=== PATIENT | female | born 1965 | race Caucasian/White ===

== ENCOUNTER 2022-08-14 12:26 | Outpatient (CLI) | payer MEDICAID, SELFPAY ==
--- NOTE | 2022-08-14 13:00 | CRLHL7_ITS ---
For Patients: As a result of the 21st Century Cures Act, medical imaging exams and procedure reports are released immediately into your electronic medical record. You may view this report before your referring provider. If you have questions, please contact your health care provider. Indication: ROXANN TERM CURRENT USE OF AROMATASE INHIBITOR LEFT IMPLANT PAIN AND FEELS DIFFERENT HX OF CHONDROSARCOMA, RENAL CELL CANCER, BREAST CANCER Technique: Postcontrast CT chest, abdomen and pelvis. 81 cc Isovue 370 intravenous contrast. Please note that all CT scans at this facility use dose modulation, iterative reconstruction, and/or weight-based dosing when appropriate to reduce radiation dose to as low as reasonably achievable. Comparison: 07/22/2022, 05/27/2022, 04/29/2022, 10/17/2021, 09/02/2021, 07/25/2021, 10/15/2018 Findings: In the chest, fluid surrounding a partially compressed left breast implant is similar to the 05/27/2022 exam. The right breast implant appears normal. Normal axillary lymph nodes. No enlarged mediastinal or hilar lymph nodes. Trace pericardial thickening without pericardial effusion. No pulmonary embolism or aortic dissection. Atherosclerotic changes are noted. Postop changes to the right shoulder again noted. Scarring within the inferior right middle lobe is unchanged. Mild scarring at the left lower lobe. Scattered intrapulmonary blebs are unchanged. Postradiation change to the anterior left upper lung is similar. Mild scarring at the left lung apex. No infiltrate or edema. No pneumothorax. No pleural effusion. No fracture. In the abdomen, there is a stable 1 centimeter focus of decreased attenuation within the dome of the liver consistent with benign cyst. An additional subcentimeter cyst is again noted within the caudate lobe. Atherosclerotic disease in the aorta without aneurysm. No enlarged retroperitoneal or mesenteric lymph nodes. No suspicious intrahepatic mass. There are calcified stones within the gallbladder, as before, measuring up to 7 millimeters. The right kidney and right adrenal gland are normal. The left adrenal gland is unremarkable. Post cryotherapy changes are present to the lateral aspect of the left kidney with mild surrounding fat stranding. No hydronephrosis. The left adrenal gland is normal. The pancreas is unremarkable. Normal spleen. No hiatal hernia. In the pelvis, the bladder appears normal. There is a small right-sided intramural fibroid within the uterus measuring 1.7 cm, unchanged. Normal ovaries. No adnexal mass. No free air or free fluid. No abscess. Increased stool is present throughout the right colon and transverse colon. Normal appendix. Small bowel appears normal. Postop changes to the anterior abdominal wall. No hernia. No inguinal or pelvic adenopathy. There is no fracture. Impression: Post cryotherapy changes to the left kidney. Persistent fluid surrounding the left breast implant measuring up to 2.9 cm. Diagnostic ultrasound recommended. No intrathoracic, intra-abdominal or intrapelvic adenopathy. Stable small benign hypodensities within the liver. No suspicious intrahepatic mass. Chronic cholelithiasis. Increased stool within the colon extending from the cecum to the splenic flexure consistent with constipation. No bowel obstruction. 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 No evidence of bibasilar fibrosis. Please note that all CT scans at this facility use dose modulation, iterative reconstruction, and/or weight-based dosing when appropriate to reduce radiation dose to as low as reasonably achievable. Dictated by uJan Cruz MD @ 08/15/2022 9:14:07 AM (Electronically Signed)
[2022-08-14 13:07] LABS: Creatinine* 0.8 mg/dL (0.5-1.5); Estimated Glomerular Filt Rate 87 ml/min
--- NOTE | 2022-08-14 13:30 | CRLHL7_ITS ---
For Patients: As a result of the Century Cures Act, medical imaging exams and procedure reports are released immediately into your electronic medical record. You may view this report before your referring provider. If you have questions, please contact your health care provider. DXA BONE MINERAL DENSITY STUDY Current height (in): 68.0. Weight (lb): 174.0. Menopause age: 53. Ethnicity: White. 1. Have you had a previous hip or vertebral fracture? No. 2. Have you had any fractures during your adult life which did not result from significant trauma (e.g., auto accident)? Yes. 3. Did either of your parents have a hip fracture? No. 4. Do you smoke? Yes. 5. Have you ever taken Glucocorticoids? No. 6. Do you have rheumatoid arthritis? No. 7. Do you have secondary osteoporosis? No. 8. Do you drink 3 or more alcoholic drinks per day? No. 9. Are you being treated for osteoporosis? No. 10. Have you ever taken any of the following medications: Actonel, Evista, Fosamax, Miacalcin, Reclast, Boniva, Forteo, HRT (i.e. estrogen/hormone therapy), Protelos, Prolia, Vitamin D, Calcium, other ??? please specify. ANSWER: Yes, vitamin D, calcium. 11. Do you have any of the following medical conditions: Anorexia or bulimia, asthma or emphysema, end stage renal disease, hyperparathyroidism, any seizure disorders, cancer, inflammatory bowel diseases, hysterectomy, other ??? please specify. ANSWER: Yes, MS. 12. What was your maximum height (inches)? 68. 13. Do you perform weight bearing exercise regularly? Yes. 14. Do you regularly consume dairy products? Yes. 15. Do you drink caffeinated beverages? Yes. 16. At what age did your period start? 15. 17. Are you premenopausal? No. 18. How many full term pregnancies have you had? 1. 19. Have you ever missed your period for more than 6 months in a row (not including or menopause)? No. TECHNIQUE: Bone mineral density study was performed using the [employer]. FINDINGS: The results of the study expressed as bone mineral density (BMD) are as follows: Lumbar spine L1 to L4: BMD: 1.048 g/cm2. T-score: 0.0. Z-score: 1.1. Neck Left: BMD: 0.696 g/cm2. T-score: -1.4. Z-score: -0.3. Right: BMD: 0.727 g/cm2. T-score: -1.1. Z-score: -0.0. Total Left: BMD: 0.870 g/cm2. T-score: -0.6. Z-score: 0.1. Right: BMD: 0.943 g/cm2. T-score: 0.0. Z-score: 0.7. IMPRESSION: Osteopenia. FRAX 10-year Fracture Risk Major Osteoporotic Fracture: 10 percent Hip Fracture: 1.4 percent Reported Risk Factors: [place] () Neck BMD=0.696, BMI=26.5, previous fracture, smoking Juan Cruz M.D. Diagnostic Radiologist [email or web address] / be/Dictated by: Juan Cruz MD @ 08/14/2022 1:39:00 PM (Electronically Signed)
== END 2022-08-14 12:27 | disposition home or self-care (01) ==
LOC: CT 12:27
PROVIDERS: PCP Family Medicine; Visit Provider Physician Assistant
DX: R63.4 Abnormal weight loss (principal); J84.10 Pulmonary fibrosis, unspecified; Z79.811 Long term (current) use of aromatase inhibitors; Q83.9 Congenital malformation of breast, unspecified
CPT/HCPCS: 36415; 71260; 74177; 77080; 82565; Q9967

== ENCOUNTER 2022-08-29 07:45 | Outpatient (CLI) | payer MEDICAID, SELFPAY ==
--- NOTE | 2022-08-29 08:15 | CRLHL7_ITS ---
For Patients: As a result of the Cures Act, medical imaging exams and procedure reports are released immediately into your electronic medical record. You may view this report before your referring provider. If you have questions, please contact your health care provider. LEFT BREAST ULTRASOUND INDICATION: History of breast cancer. Mastectomies. Fluid collection surrounding the LEFT breast implant seen on a recent CT 08/14/2022. Follow-up. TECHNIQUE: Directed LEFT breast ultrasound with this radiologist present. FINDINGS: Surgically absent LEFT breast. There is a LEFT breast implant. The implant although intact appears to be somewhat deformed by a surrounding complex collection which is not consistent of thin fluid but rather thickened fluid and soft tissue density. This may reflect prior surgery and post radiation type changes. There is no air within this. The patient does not have symptoms of infection. The chronicity of this finding is uncertain. These findings were discussed in detail with the patient. Any further workup or follow-up should be based on clinical grounds. IMPRESSION: 1. Intact but deformed LEFT breast implant. 2. Rind of thickened soft tissue about the implant most of which is not simple fluid but more thickened soft tissue density. This would not be amenable to percutaneous drainage. ACR not applicable A lay language report of this examination will be provided to the patient. Dictated by: Jeff Karimi MD @08/29/2022 9:44:29 AM j/Dictated by: Jeff Karimi MD @ 08/29/2022 9:44:00 AM (Electronically Signed)
== END 2022-08-29 07:46 | disposition home or self-care (01) ==
LOC: US 07:46
PROVIDERS: PCP Family Medicine; Visit Provider Physician Assistant
DX: C50.919 Malignant neoplasm of unspecified site of unspecified female breast (principal); C77.3 Secondary and unspecified malignant neoplasm of axilla and upper limb lymph nodes
CPT/HCPCS: 76642

== ENCOUNTER 2022-11-06 11:00 | Outpatient (RCR) | payer MEDICAID, SELFPAY ==
--- NOTE | 2022-11-07 14:46 | URNOTE ---
REceived request for prior auth for Reclast ([id number]). Per [facility] Injectable Drug Authorization list, this does not require prior authorization.
== END 2023-01-27 23:59 | disposition home or self-care (01) ==
LOC: CCIC 11:00
PROVIDERS: PCP Family Medicine; Visit Provider Physician Assistant
DX: C50.912 Malignant neoplasm of unspecified site of left female breast (principal); Z17.0 Estrogen receptor positive status [ER+]; Z79.811 Long term (current) use of aromatase inhibitors; C77.3 Secondary and unspecified malignant neoplasm of axilla and upper limb lymph nodes; C64.2 Malignant neoplasm of left kidney, except renal pelvis; I50.9 Heart failure, unspecified; F32.A Depression, unspecified; N95.1 Menopausal and female climacteric states; Z79.899 Other long term (current) drug therapy; M85.80 Other specified disorders of bone density and structure, unspecified site; G89.18 Other acute postprocedural pain
CPT/HCPCS: 99202; 99205; 99212; 99214; 99215